=== PATIENT | male | born 1970 | race Caucasian/White ===

== ENCOUNTER 2019-09-24 10:06 | Emergency (ER) | payer MEDICAID ==
[~2019-09-24] VITALS: Ht 170.2 cm; Wt 69.4 kg
[2019-09-24 10:33] VITALS: Ht 170.2 cm; Wt 69.4 kg
[2019-09-24 11:24] VITALS: BP 148/84
== END 2019-09-24 11:24 | disposition home or self-care (01) ==
LOC: EDSEX 10:06 → ED 10:06
DX: L02.415 Cutaneous abscess of right lower limb (principal); I10 Essential (primary) hypertension; Z88.8 Allergy status to other drugs, medicaments and biological substances